=== PATIENT | male | born 1945 | race African-American/Black ===

== ENCOUNTER 2019-06-23 14:04 | Emergency (ER) | payer OTHER, MEDICAID ==
[~2019-06-23] VITALS: Ht 188 cm; Wt 170.6 kg
[~2019-06-23 14:04] MED LIST: ASPIRIN; FLOMAX; GABAPENTIN; THEO; VERAPAMIL
[2019-06-23 14:05] VITALS: BP_SYST 175; BP_DIAS 90; BP_DIAS 95
[2019-06-23] MEDS ORDERED: OXYC30TA PO (14:17)
[2019-06-23] MEDS ORDERED: FAMO-90 PO (14:17)
[2019-06-23] MEDS ORDERED: SACU1TAB PO (14:17)
[2019-06-23] MEDS ORDERED: FURO-570 PO (14:17)
[2019-06-23] MEDS ORDERED: CARV25TA PO (14:17)
[2019-06-23] MEDS ORDERED: PRAV40TA1 PO (14:17)
[2019-06-23] MEDS ORDERED: RIVA20TA PO (14:17)
[2019-06-23] MEDS ORDERED: BRIM5SOL1 OP (14:17)
[2019-06-23] MEDS ORDERED: ASPI-1718 PO (14:17)
[2019-06-23] MEDS ORDERED: GABA300C PO (14:17)
[2019-06-23] MEDS ORDERED: TAMS0.4C96 PO (14:17)
[2019-06-23] MEDS ORDERED: [UNRECOGNIZED DRUG - CODE] PO (14:17)
[2019-06-23] MEDS ORDERED: XALOS OP (14:17)
[2019-06-23] MEDS ORDERED: PRED10TA5 PO (14:17)
[2019-06-23] MEDS ORDERED: HYDROcodone/APAP 5/325 MG 1 TAB TAB PO ONE (14:35)
[2019-06-23] MEDS ORDERED: oxyCODONE 10 MG TABER PO ONE (14:45)
[2019-06-23] MEDS ORDERED: fentaNYL 0.05 MG/ML VIAL IVP ONE ×2 (15:05→17:30)
[2019-06-23 15:07] LABS: BASOPHILS # (AUTO) 0.1 K/uL (0.00-0.22); BASOPHILS % (AUTO) 0.7 % (0.0-2.0); EOSINOPHILS # (AUTO) 0.2 K/uL (0-0.4); EOSINOPHILS % (AUTO) 1.8 % (0.0-4.0); HEMATOCRIT 30.8 % (36-52); HEMOGLOBIN 9.7 g/dL (12.0-18.0); LYMPHOCYTES % (AUTO) 11.6 % (20.5-51.1); MEAN CORPUSCULAR HEMOGLOBIN 27 pg (27-31); MEAN CORPUSCULAR HGB CONC 32 g/dL (33-37); MEAN CORPUSCULAR VOLUME 86.2 fL (80-94); MONOCYTES # (AUTO) 1.1 K/uL (0.8-1.0); MONOCYTES % (AUTO) 12.2 % (1.7-9.3); NEUTROPHILS # (AUTO) 6.3 K/uL (1.8-7.7); NEUTROPHILS % (AUTO) 73.7 % (42.2-75.2); PLATELET COUNT (AUTO) 239 K/uL (140-450); RED BLOOD CELL COUNT(AUTO) 3.57 MIL/uL (4.20-6.10); RED CELL DISTRIBUTION WIDTH 13.6 % (11.6-13.7); WHITE BLOOD COUNT (AUTO) 8.6 K/uL (4.8-10.8)
[2019-06-23 15:43] LABS: ANION GAP 3.6 (8-16); ASPARTATE AMINOTRANSFERASE 16 U/L (15-37); CARBON DIOXIDE 39.4 mmol/L (21-32); CHLORIDE 96 mmol/L (98-107); CREATININE 1.2 mg/dL (0.7-1.3); GLUCOSE 91 mg/dL (74-106); SODIUM SERUM 134 mmol/L (136-145); TOTAL BILIRUBIN 0.4 mg/dL (0.0-1.0); UREA NITROGEN, BLOOD 26 mg/dL (7-18)
[2019-06-23 16:07] LABS: APPEARANCE,URINE CLEAR (CLEAR); BILIRUBIN,URINE NEGATIVE (NEGATIVE); BLOOD, URINE 2+ (NEGATIVE); COLOR,URINE YELLOW (YELLOW); LEUKOCYTE ESTERASE ,URINE 2+ (NEGATIVE); NITRITE, URINE NEGATIVE (NEGATIVE); UGLUCOSE NEGATIVE (NEGATIVE)
[2019-06-23 16:24] LABS: WBC,URINE 60-80 /HPF (0-5)
[2019-06-23] MEDS ORDERED: fentaNYL 0.05 MG/ML VIAL ONE (17:31)
[2019-06-23 18:25] VITALS: BP 124/69
== END 2019-06-23 18:22 ==
LOC: MED 14:04
DX: N39.0 Urinary tract infection, site not specified (principal); R41.82 Altered mental status, unspecified; J44.9 Chronic obstructive pulmonary disease, unspecified; I10 Essential (primary) hypertension; Z95.0 Presence of cardiac pacemaker; Z98.890 Other specified postprocedural states; Z79.82 Long term (current) use of aspirin; Z79.01 Long term (current) use of anticoagulants; Z79.899 Other long term (current) drug therapy; Z88.5 Allergy status to narcotic agent; Z88.6 Allergy status to analgesic agent
CPT/HCPCS: 36415; 71045; 80053; 81001; 83605; 83880; 84484; 85025; 87040; 87086; 89220; 93005; 96374; 96376; 99284; J3010; Q0092